=== PATIENT | female | born 1995 | race Two or more races ===

== ENCOUNTER 2022-05-06 23:06 | Emergency (ER) | payer OTHER ==
[~2022-05-06] VITALS: Ht 154.9 cm; Wt 49.9 kg
[2022-05-07] MEDS ORDERED: ACETAMINOPHEN650 M2 PO (03:36)
[2022-05-07] MEDS ORDERED: PRENATAL VITAM1 EAC5 PO (03:36)
[2022-05-07] MEDS ORDERED: ACETAMINOPHEN650 M2 (03:39)
== END 2022-05-07 03:47 | disposition home or self-care (01) ==
LOC: ER 23:06
DX: Z32.01 Encounter for pregnancy test, result positive (principal); Z33.1 Pregnant state, incidental; J45.909 Unspecified asthma, uncomplicated; Z91.013 Allergy to seafood

== ENCOUNTER → 2022-05-11 | Emergency (ER) | payer OTHER ==
[~2022-05-11] VITALS: Ht 154.9 cm; Wt 49.9 kg
[~2022-05-11] MED LIST: ACETAMINOPHEN650 M2; ACETAMINOPHEN650 M2 PO; PRENATAL VITAM1 EAC5 PO
== END | disposition home or self-care (01) ==
LOC: ER 20:38
DX: O20.9 Hemorrhage in early pregnancy, unspecified (principal); Z3A.00 Weeks of gestation of pregnancy not specified; Z91.013 Allergy to seafood

== ENCOUNTER 2023-10-23 18:39 | Emergency (ER) | payer OTHER ==
[~2023-10-23] VITALS: Ht 154.9 cm; Wt 455.0 kg
[2023-10-23] MEDS ORDERED: FAMOTIDINE/PF 20 MG/2 ML VIAL IV ONE (20:00)
[2023-10-23] MEDS ORDERED: ONDANSETRON HCL 2 MG/ML VIAL IV ONE (20:00)
[2023-10-23 20:20] LABS: HEMATOCRIT 40.3 % (36.0-45.00); HEMOGLOBIN 13.8 g/dL (12.0-15.00); MEAN CELL VOLUME 92.2 fL (80.00-100.00); MEAN CORPUSCULAR HEMOGLOBIN 31.5 pg (27.00-32.0); MEAN CORPUSCULAR HGB CONC 34.2 g/dl (32.0-36.0); PLATELET COUNT 247 K/uL (150-450); RED BLOOD COUNT 4.38 M/uL (4.00-6.00); RED CELL DISTRIBUTION WIDTH 13.8 % (11.5-14.5)
[2023-10-23 20:45] LABS: CALCIUM 9.4 mg/dL (8.5-10.1); CREATININE SERUM 0.67 mg/dL (0.55-1.02); GFR 105.58; POTASSIUM 4.28 mEq/L (3.5-5.1)
[2023-10-23 20:49] LABS: PH,URINE 5.5 (5.0-8.0); URINE APPEARANCE Clear; URINE BILIRRUBIN Negative (NEGATIVE); URINE BLOOD Negative; URINE COLOR Yellow; URINE GLUCOSE Negative (NEGATIVE); URINE LEUKOCYTE Large; URINE NITRATE Negative; URINE PROTEIN Negative (NEGATIVE); URINE UROBILINOGEN 0.2 E.U./dl
[2023-10-23 20:50] LABS: URINE BACTERIA 1568.6 uL (0.0-1933); URINE EPITHELIAL CELLS 75.9 uL (0.0-38.8); URINE RBC 3.8 uL (0.0-20.8); URINE WBC 26.1 uL (0.0-23.2)
[2023-10-23] MEDS ORDERED: CEPHALEXIN500 M1 PO (21:36)
[2023-10-23] MEDS ORDERED: KETOROLAC TROMETHAMINE 60 MG VIAL IM ONE (21:45)
== END 2023-10-23 21:45 | disposition home or self-care (01) ==
LOC: ER 18:39
PROVIDERS: Nurse Practitioner Family
DX: N39.0 Urinary tract infection, site not specified (principal); R11.0 Nausea; R10.9 Unspecified abdominal pain; Z20.822 Contact with and (suspected) exposure to COVID-19; Z91.013 Allergy to seafood